=== PATIENT | male | born 1985 | race American Indian/Alaskan Native ===

== ENCOUNTER 2018-02-26 14:12 | Emergency (ER) | payer SELFPAY ==
[2018-02-26 15:09] VITALS: BP 125/70
[2018-02-26] MEDS ORDERED: MOTRIN ONE (19:11)
[2018-02-26] MEDS ORDERED: MOTRIN PO ONE (19:11)
--- NOTE | 2018-02-26 19:58 | Emergency Department Report ---
ED Male HPI - General Chief complaint: Pain General Stated complaint: GROIN PAIN Time Seen by Provider: 02/26/18 19:50 Source: patient Mode of arrival: Ambulatory Limitations: No Limitations - History of Present Illness Initial comments: 32-year-old -[place] male comes to the emergency room for complaint of left groin pain and swelling 2-3 days. Patient denies any testicular pain or enlargement. He denies any penile discharge but does admit to dysuria. Patient denies this and any heavy objects. He denies any nausea vomiting fever or chills. She is sexually active with women one partner last 6 months. Unprotected intercourse. Past medical history, takes no medications on a daily basis. Has no known drug allergies. MD Complaint: dysuria, groin pain (left side) -: days(s) (3) Location: left inguinal region Radiation: none Severity: severe Severity scale (0 -10): 8 Quality: aching Consistency: constant Improves with: none Worsens with: palpation swelling (left groin region), dysuria - Related Data Sexually active: Yes (women 1 partner) Previous Rx's Medication Instructions Recorded Last Taken Type Famotidine [Pepcid] 20 mg PO BID #20 tablet 07/11/14 Unknown Rx HYDROcodone/APAP 5-325 [[place] 1 each PO Q6HR PRN #20 tablet 07/11/14 Unknown Rx 5/325] Hyoscyamine Subl [Levsin Sl] 0.125 mg PO Q6HR #20 tablet 07/11/14 Unknown Rx Ondansetron [Zofran] 4 mg PO Q6HR PRN #20 tablet 07/11/14 Unknown Rx Pantoprazole [Protonix] 40 mg PO BID #60 tablet 11/03/15 Unknown Rx Allergies Allergy/AdvReac Type Severity Reaction Status Date / Time No Known Allergies Allergy Verified 07/11/14 06:33 ED Review of Systems ROS: Stated complaint: GROIN PAIN Other details as noted in HPI Constitutional: denies: chills, fever Gastrointestinal: denies: abdominal pain, nausea, diarrhea Genitourinary: dysuria Hematological/Lymphatic: swollen glands (left groin) ED Past Medical Hx - Past Medical History Hx GERD: Yes - Social History Smoking Status: Never Smoker - Medications Home Medications: Home Medications Medication Instructions Recorded Confirmed Last Taken Type Famotidine [Pepcid] 20 mg PO BID #20 tablet 07/11/14 Unknown Rx HYDROcodone/APAP 5-325 [[place] 1 each PO Q6HR PRN #20 tablet 07/11/14 Unknown Rx 5/325] Hyoscyamine Subl [Levsin Sl] 0.125 mg PO Q6HR #20 tablet 07/11/14 Unknown Rx Ondansetron [Zofran] 4 mg PO Q6HR PRN #20 tablet 07/11/14 Unknown Rx Pantoprazole [Protonix] 40 mg PO BID #60 tablet 11/03/15 Unknown Rx ED Physical Exam - General Limitations: No Limitations General appearance: alert, in no apparent distress - ENT ENT exam: Present: mucous membranes moist - Neck Neck exam: Present: normal inspection - Respiratory Respiratory exam: Present: normal lung sounds bilaterally. Absent: respiratory distress - Cardiovascular Cardiovascular Exam: Present: regular rate, normal rhythm. Absent: systolic murmur, diastolic murmur, rubs, gallop - Back Exam Back exam: Present: normal inspection - Neurological Exam Neurological exam: Present: alert, oriented X3 - Psychiatric Psychiatric exam: Present: normal affect, normal mood - Skin Skin exam: Present: warm, dry, intact, normal color. Absent: rash ED Course Vital Signs 02/26/18 15:04 Temperature 98.4 F Pulse Rate 82 Respiratory 18 Rate Blood Pressure 125/70 O2 Sat by Pulse 98 Oximetry ED Medical Decision Making - Lab Data Result diagrams: 02/26/18 21:00 02/26/18 21:00 - Medical Decision Making Recently evaluated by this provider fast track. CT scan was normal. Urinalysis negative to treat patient presumptive for STD versus Ceftin 250 mg and a azithromycin 1 g. Discussed the patient is to follow-up with the primary care provider, Ton Gleason below. Patient verbalized understanding. Critical care attestation.: If time is entered above; I have spent that time in minutes in the direct care of this critically ill patient, excluding procedure time. ED Disposition Clinical Impression: Possible exposure to STD, Left groin pain Disposition: DC- TO HOME OR SELFCARE Is pt being admited?: No Does the pt Need Aspirin: No Condition: Stable Instructions: Safe Sex (ED), Sexually Transmitted Diseases (ED) Additional Instructions: Please inform your partner that she been treated for STD. He can bring her ID back to the Hospital medical records in 5-7 days to obtain you gonorrhea and chlamydia results. Referrals: PRIMARY CARE, [Primary Care Provider] - 3-5 Days Forms: Work/School Release Form(ED)
[2018-02-26 20:17] LABS: Bilirubin,Urine NEG (Negative); Blood,Urine NEG (Negative); Color,Urine Yellow (Yellow); Mucus,Urine FEW /HPF; Urobilinogen,Urine < 2.0 mg/dL (<2.0); WBC,Urine < 1.0 /HPF (0.0-6.0)
[2018-02-26 21:13] LABS: Basophils # (Auto) 0.1 K/mm3 (0.0-0.1); Basophils % (Auto) 0.6 % (0.0-1.8); Eosinophils # (Auto) 0.3 K/mm3 (0.0-0.4); Eosinophils % (Auto) 2.1 % (0.0-4.3); Lymphocytes # (Auto) 2.9 K/mm3 (1.2-5.4); Lymphocytes % (Auto) 18.2 % (13.4-35.0); Mean Corpuscular HGB Conc 36 % (32-34); Mean Corpuscular Hemoglobin 34 pg (28-32); Mean Corpuscular Volume 95 fl (84-94); Monocytes # (Auto) 1.4 K/mm3 (0.0-0.8); Monocytes % (Auto) 8.9 % (0.0-7.3); Platelet Count 222 K/mm3 (140-440); Red Blood Count 5.15 M/mm3 (3.65-5.03); Red Cell Distribution Width 12.5 % (13.2-15.2)
[2018-02-26 21:15] LABS: Hematocrit 48.7 % (35.5-45.6); Hemoglobin 17.3 gm/dl (11.8-15.2)
[2018-02-26 21:23] LABS: BUN/Creatinine Ratio 17; Blood Urea Nitrogen 17 mg/dL (9-20); Calcium 9.9 mg/dL (8.4-10.2); Hemolysis Index 9
--- NOTE | 2018-02-26 22:21 | Cat Scan Report ---
FINAL REPORT PROCEDURE: CT ABDOMEN PELVIS W CON TECHNIQUE: Computerized axial tomography of the abdomen and pelvis was performed after the IV injection of iodinated nonionic contrast. HISTORY: groin pain left side with lymphadenopathy COMPARISON: No prior studies are available for comparison. FINDINGS: This study is limited due to motion artifacts. Liver, spleen, and adrenal glands are within normal limits. Bilateral kidneys demonstrate uniform enhancement without hydronephrosis. Aorta is of normal caliber. There is no free fluid or free air. Gallbladder is unremarkable. Small bowel loops are within normal limits. Appendix is normal. Multiple small nonenlarged lymph nodes are noted in bilateral superficial inguinal regions. Vertebral height is normal. IMPRESSION: Limited study due to motion artifacts No obvious acute intra-abdominal or pelvic pathology.
[2018-02-26] MEDS ORDERED: ROCEPHIN IM ONE (22:36)
[2018-02-26] MEDS ORDERED: ZITHROMAX PO ONE (22:36)
[2018-02-26] MEDS ORDERED: XYLOCAINE 1% MPF 5 mL INFILTRATI ONE (22:36)
== END 2018-02-26 23:25 | disposition home or self-care (01) ==
LOC: ED 14:12
DX: R30.0 Dysuria (principal); K21.9 Gastro-esophageal reflux disease without esophagitis
CPT/HCPCS: 36415; 74177; 80048; 81001; 85025; 87591; 96372; 99284; J0696; Q9967